=== PATIENT | male | born 1970 | race Caucasian/White ===

== ENCOUNTER 2022-05-13 00:45 | Emergency (ER) | payer SELFPAY ==
[~2022-05-13] VITALS: Ht 175.3 cm; Wt 90.7 kg
[2022-05-13 01:07] VITALS: BP 141/92
--- NOTE | 2022-05-13 01:30 | NUR ---
pt wanted to go to restroom and nurse reminded him that his here becuse of fall. Pt is refusing and went to rest room by himself despite mutiple attempty to asked him to stay in the bed.
--- NOTE | 2022-05-13 01:35 | NUR ---
Pt becaming more confused and agitated and wanted to get off the bed and go home. Nurse notified the Dr Tello and he said to invirte family member to calm him down. has reccomded the patient to get some meds to calm him down.
--- NOTE | 2022-05-13 01:45 | NUR ---
pt is becoming more confused.
--- NOTE | 2022-05-13 01:45 | NUR ---
pt family refused the medication and Dr. colbert spoke to them.
[2022-05-13] MEDS ORDERED: LORazepam 2 MG/ML VIAL IM ONE ×2 (01:50→02:20)
[2022-05-13] MEDS ORDERED: diphenhydrAMINE 50 MG/ML VIAL IM ONE (01:50)
[2022-05-13] MEDS ORDERED: HALOPERIDOL IM 5 MG/ML VIAL IM ONE (01:50)
[2022-05-13] MEDS ORDERED: HALOPERIDOL IM 5 MG/ML VIAL ONE (01:53)
[2022-05-13] MEDS ORDERED: LORazepam 2 MG/ML VIAL ONE (01:53)
[2022-05-13] MEDS ORDERED: diphenhydrAMINE 50 MG/ML VIAL ONE (01:54)
--- NOTE | 2022-05-13 02:08 | NUR ---
Brother was invited to calm the patient and pt is willing to listen more to him and agrred to take medications
[2022-05-13 03:20] LABS: BARBITURATE, URINE NEGATIVE ng/ml (NEG <=200); BENZODIAZEPINE, URINE NEGATIVE ng/mL (NEG <=200); CANNABINOID, URINE POSITIVE ng/mL (NEG <=50); COCAINE, URINE NEGATIVE ng/mL (NEG <=300); OPIATE, URINE NEGATIVE ng/mL (NEG <=2000); PHENCYCLIDINE SCREEN,URINE NEGATIVE ng/mL (NEG <=25)
[2022-05-13 03:37] LABS: BASOPHILS % (AUTO) 0.5 % (0.0-2.0); EOSINOPHILS # (AUTO) 0.1 K/uL (0-0.4); EOSINOPHILS % (AUTO) 1.9 % (0.0-4.0); HEMATOCRIT 46.6 % (36-52); HEMOGLOBIN 15.8 g/dL (12.0-18.0); LYMPHOCYTES # (AUTO) 1.6 K/uL (2.0-11.5); MEAN CORPUSCULAR HEMOGLOBIN 32 pg (27-31); MEAN CORPUSCULAR HGB CONC 34 g/dL (33-37); MONOCYTES # (AUTO) 0.4 K/uL (0.8-1.0); MONOCYTES % (AUTO) 5.3 % (1.7-9.3); NEUTROPHILS # (AUTO) 4.9 K/uL (1.8-7.7); NEUTROPHILS % (AUTO) 69.3 % (42.2-75.2); PLATELET COUNT (AUTO) 259 K/uL (140-450); RED BLOOD CELL COUNT(AUTO) 5.01 MIL/uL (4.20-6.10); RED CELL DISTRIBUTION WIDTH 13.7 % (11.6-13.7)
[2022-05-13 04:01] LABS: ALBUMIN 3.9 g/dL (3.4-5.0); ANION GAP 14.2 (8-16); ASPARTATE AMINOTRANSFERASE 22 U/L (15-37); CARBON DIOXIDE 27.7 mmol/L (21-32); CHLORIDE 108 mmol/L (98-107); CREATININE 0.9 mg/dL (0.6-1.3); GFR ARICAN-AMERICAN 113 mL/min (>90); GLUCOSE 101 mg/dL (74-106); POTASSIUM 3.9 mmol/L (3.5-5.1); SODIUM SERUM 146 mmol/L (136-145); TOTAL BILIRUBIN 0.2 mg/dL (0.0-1.0); UREA NITROGEN, BLOOD 18 mg/dL (7-18)
[2022-05-13 04:02] LABS: ACETAMINOPHEN < 0.5 ug/ml (10-30); SALICYLATE < 2.8 mg/dL (2.8-20.0)
--- NOTE | 2022-05-13 04:26 | NUR ---
pt found to be mouth breather. attempt with use nasal canula but still desating. simple mask apllied and patient is sating 96 persent
--- NOTE | 2022-05-13 05:35 | NUR ---
Pt asleep and desat on simple mask, placed on non rebreather, desat noted. RT called.
[2022-05-13 05:40] VITALS: BP 136/91
--- NOTE | 2022-05-13 05:40 | NUR ---
Pt placed on bipap. O2 sat 97%
--- NOTE | 2022-05-13 05:44 | NUR ---
0535 PLACED PT ON BIPAP IPAP 16 EPAP 6 RR 14 100% FIO2 LARGE MASK
[2022-05-13] MEDS ORDERED: ONDA-188 SL (06:13)
--- NOTE | 2022-05-13 08:21 | NUR ---
ASSUMED PATIENT CARE, CONCUR WITH PREVIOUS NURSING ASSESSMENTS.
--- NOTE | 2022-05-13 10:16 | NUR ---
SWITCHED FROM BIPAP TO O2 VIA NC AT 2LPM.
--- NOTE | 2022-05-13 11:38 | NUR ---
DR ANDRADE AT BEDSIDE, RE-EVALUATING PATIENT. PATIENT IS ALERT, WAKE, ORIENTED X 4. ABLE TO PASS ROAD TESTING, DC HOME ACCOMPANIED BY FAMILY.
[2022-05-13 11:41] VITALS: BP 116/74
== END 2022-05-13 11:41 | disposition home or self-care (01) ==
LOC: MED 00:45
DX: S01.81XA Laceration without foreign body of other part of head, initial encounter (principal); F10.129 Alcohol abuse with intoxication, unspecified; Y90.9 Presence of alcohol in blood, level not specified; W18.30XA Fall on same level, unspecified, initial encounter; Y93.89 Activity, other specified; Y92.89 Other specified places as the place of occurrence of the external cause; Y99.8 Other external cause status
CPT/HCPCS: 12011; 36415; 70450; 70486; 72125; 80053; 80305; 85025; 96372; 99291; G0480; G0482; J1200; J1630; J2060

== ENCOUNTER 2022-05-14 13:57 | Emergency (ER) | payer SELFPAY ==
[~2022-05-14] VITALS: Ht 175.3 cm; Wt 88.5 kg
[~2022-05-14 13:57] MED LIST: ONDA-188 SL
[2022-05-14 14:00] VITALS: BP 133/89
--- NOTE | 2022-05-14 14:07 | NUR ---
TO ER BED 4
== END 2022-05-14 14:38 | disposition home or self-care (01) ==
LOC: MED 13:57
DX: S01.81XD Laceration without foreign body of other part of head, subsequent encounter (principal); Z48.00 Encounter for change or removal of nonsurgical wound dressing; X58.XXXD Exposure to other specified factors, subsequent encounter
CPT/HCPCS: 99281